=== PATIENT | male | born 1975 | race Caucasian/White ===

== ENCOUNTER 2018-11-02 22:57 | Emergency (ER) | payer BC ==
[~2018-11-02] VITALS: Ht 175.3 cm; Wt 99.8 kg
[2018-11-02] MEDS ORDERED: NKM (23:09)
[2018-11-02 23:35] VITALS: BP 167/111
--- NOTE | 2018-11-02 23:36 | NUR ---
ED Nurse Note: LEFT INDEX FINGER LACERTION VIA DOOR, 06/17
[2018-11-02] MEDS ORDERED: Tetanus/Diptheria/Pertussis Vaccine 0.5ml Syr IM ONE (23:45)
[2018-11-03] MEDS ORDERED: CEPHALEXIN500 MG ORAL (01:48)
[2018-11-03] MEDS ORDERED: IBUPROFEN600 MG ORAL (01:53)
[2018-11-03 02:15] VITALS: BP 152/88
--- NOTE | 2018-11-03 02:15 | NUR ---
ER DISCHARGE NOTE: Patient is cleared to be discharged per ERMD, pt is aox4, on room air, with stable vital signs. pt was given dc and prescription instructions, pt was able to verbalize understanding, pt id band removed without complications. pt is able to ambulate with steady gait. pt took all belongings.
--- NOTE | 2018-11-03 10:21 | Diagnostic Imaging Report ---
Indication: Laceration of left second and third finger Technique: 3 views of the left second and third fingers Comparison: none Findings: Minimal if any soft tissue defect noted. No acute fractures. No dislocations. No osseous destruction. No radiopaque foreign body. Impression: No acute bony trauma or radiopaque foreign body
--- NOTE | 2018-11-07 12:03 | Emergency Room Report ---
History of Present Illness General Chief Complaint: Laceration Source: Patient Present Illness HPI Patient male presented after increased pain to his hand. Patient had reportedly injured his finger on a door. Patient is right-hand dominant. Injury was to the index and middle finger. Patient denies recent tetanus vaccine. He denies any distal numbness. Allergies: Coded Allergies: No Known Allergies (Unverified , 11/02/18) Patient History Past Medical History: see triage record Reviewed Nursing Documentation: PMH: Agreed; PSxH: Agreed Nursing Documentation-PMH Hx Hypertension: Yes Review of Systems All Other Systems: negative except mentioned in HPI Physical Exam General Appearance: well appearing, no apparent distress, alert, GCS 15, non- toxic Head: normocephalic, atraumatic ENT: hearing grossly normal, normal voice Neck: full range of motion, supple Respiratory: no respiratory distress, speaking full sentences Cardiovascular #1: normal inspection Musculoskeletal: no calf tenderness Neurologic: normal inspection, alert, oriented x3, responsive, normal gait Psychiatric: mood/affect normal Skin: laceration - flap Procedures Laceration/Wound Repair Laceration/Wound Repair : Consent: Emergent Wound Location: upper extremity Wound's Depth, Shape: superficial, flap Wound Length (cm): 1 Wound Explored: clean Irrigated w/ Saline (ccs): 20 Anesthesia: 0.5% Sensorcaine Volume Anesthetic (ccs): 1 Wound Debrided: minimal Wound Repaired With: sutures Suture Size/Type: 5:0 Number of Sutures: 4 Patient Tolerated: Well Complications: None Medical Decision Making Diagnostic Impression: Primary Impression: Laceration ER Course Patient presented for laceration. Differential diagnoses included foreign body , nerve injury, arterial injury among others. X-ray imaging of the hand show no evident fracture with no evident foreign body. Laceration was repaired with nylon stitches. Patient tolerated this well. Patient will be given prescription for pain medication and antibiotics. He was advised to have sutures removed in 10-14 days. He is advised to have wound rechecked in 3 days. Patient is advised to return if any worsening of condition. Status: improved Disposition: HOME, SELF-CARE Condition: Stable Scripts Ibuprofen* (MOTRIN*) 600 Mg Tablet 600 MG ORAL Q8H PRN for For Pain, #30 TAB 0 Refills Prov: Rick Juárez MD 11/03/18 Cephalexin* (KEFLEX*) 500 Mg Capsule 500 MG ORAL EVERY 6 HOURS, #28 CAP Prov: Rick Juárez MD 11/03/18 Referrals: NOT CHOSEN IPA/MD,REFERRING (PCP) Patient Instructions: Laceration Care, Adult, Tissue Adhesive Wound Care Additional Instructions: Suture removal in 10 days to 2 weeks. Rick Juárez MD Nov 07, 2018 12:03
== END 2018-11-03 02:15 | disposition home or self-care (01) ==
LOC: EMR 23:23
DX: S61.211A Laceration without foreign body of left index finger without damage to nail, initial encounter (principal); S61.213A Laceration without foreign body of left middle finger without damage to nail, initial encounter; W22.8XXA Striking against or struck by other objects, initial encounter; Y92.89 Other specified places as the place of occurrence of the external cause; Z23 Encounter for immunization; I10 Essential (primary) hypertension
CPT/HCPCS: 90471; 90715; 99283